=== PATIENT | male | born 1980 | race Caucasian/White ===

== ENCOUNTER 2019-02-18 04:51 | Observation (INO) | payer OTHER ==
[2019-02-18] VITALS (9 sets, daily range): BP systolic 116–143; BP diastolic 63–82; PULSE 54–89; RESP 17–20; Ht 170.2 cm; Wt 77.8 kg
[~2019-02-18] VITALS: Ht 170.2 cm; Wt 77.8 kg
[~2019-02-18 04:51] MED LIST: ALBU8.5H5 IH; HYDR-3498 PO
--- NOTE | 2019-02-18 08:28 | HP ---
Date/Time of Note Date/Time of Note DATE: 02/18/19 TIME: 08:28 Assessment/Plan VTE Prophylaxis Pharmacological prophylaxis: LMWH Lines/Catheters IV Catheter Type (from [facility]): Peripheral IV Assessment/Plan Hospital Course 38-year-old male with no significant comorbidities other than nicotine use who presented to an outside emergency room with complaints of chest pain and left- sided numbness, who was transferred to [facility] for further treatment and evaluation because of insurance reasons. 1. Chest pain. -Etiology unclear. -Differentials include ACS, pleuritic chest pain, versus musculoskeletal chest pain. Less likely PE since the d-dimer is negative and the patient is not hypoxic. -Obtain serial troponins. -Obtain 2D echocardiogram to evaluate left ventricular ejection fraction and evaluate for any wall motion abnormalities. -Start aspirin. -Obtain cardiology consult. 2. Left-sided numbness. -No focal weakness. -Brain CT scan from the transferring facility negative. -Continue aspirin. 3. Nicotine use. -Cessation will be advised. Plan: The patient will be admitted to inpatient telemetry floor. The patient will be kept n.p.o with no caffeine. The patient will be started on DVT prophylaxis. The patient will remain a full code. Activities will be as tolerated. The rest of the patient's management will be based on the clinical course, inputs from consultants, and the results of diagnostic studies. Based on the patient's clinical presentation, he most probably requires at least 1 midnight's stay for further management and evaluation of his clinical presentation. The patient was seen in collaboration with Dr. Humphrey. HPI/ROS Admit Date/Time Admit Date/Time Feb 18, 2019 at 06:30 Hx of Present Illness Reason for admission: Transfer from outside facility emergency room for further evaluation of chest pain and left-sided numbness. Consultants 1. Urbano Massey MD, Cardiology. This is a 38-year-old male who denied any significant past medical history. The patient is an occasional tobacco user. The patient went to [facility] emergency room because of chest pain as well as left upper and lower extremity numbness. The patient is a poor historian. The patient verbalized that the chest pain comes at random intervals. The patient complains of chest pain as pressure pain. He also reported exertional dyspnea. He denied any pleuritic pain. He verbalized that he has not been feeling well since he had a "flu" 1 month ago. The patient denied any fevers or chills. The patient denied any nausea, vomiting, or diaphoresis. In the emergency room at the transferring facility, the patient underwent a twelve-lead EKG that was showing normal sinus rhythm. The patient's troponin T was within normal limits. The patient's d-dimer was within normal limits. The patient underwent a brain CT scan that was negative. The patient was transferred to [facility] for further evaluation because of insurance reasons. ROS Constitutional: no complaints Eyes: no complaints ENT: no complaints Respiratory: no complaints Cardiovascular: chest pain, lightheadedness, other (Dyspnea on exertion) Gastrointestinal: no complaints Genitourinary: no complaints Musculoskeletal: no complaints Skin: no complaints Neurologic: dizziness, other (Paresthesias of the left upper and left lower extremity.) Endocrine: no complaints Lymphatic: no complaints Psychological: no complaints Immunologic: no complaints PMH/Family/Social Past Medical History Medical History: no pertinent history Coded Allergies: Penicillins (Verified Allergy, Unknown, 06/04/12) Past Surgical History 1. Sinus surgery. Family History Significant Family History: heart disease (In mother with stent placement), diabetes (In mother) Social History The patient lives at home with his family. Works as a implementation manager. Alcohol Use: occasionally Smoking Status: Current some day smoker Drug Use: none Exam/Review of Systems Vital Signs Vitals Vital Signs Date Temp Pulse Resp B/P (MAP) Pulse Ox O2 O2 Flow FiO2 Time Delivery Rate 02/18/19 97.7 54 18 120/67 98 07:14 (84) 02/18/19 Room Air 06:53 Exam Exam General: Adequately build 38 year-old male lying in bed in no apparent distress. HEENT: Normocephalic, atraumatic. Eyes: Anicteric sclerae, conjunctivae clear. ENT: Nasal septum midline, oral mucosa moist. Neck supple, no JVD noticed. Respiratory: Bilaterally clear breath sounds. No use of accessory muscles of respiration. No adventitious breath sounds. Cardiovascular: S1, S2 heard. Regular rate and rhythm. Abdomen: Soft, nontender, and nondistended. Bowel sounds positive in all 4 quadrants. Genitourinary: Deferred. Extremities: No cyanosis, no clubbing, no edema. Peripheral pulses palpable. Neurologic: Cranial nerves II through XII grossly intact. The patient is awake, alert, and oriented. Equal strength in all 4 extremities. Skin: Normal skin turgor. No skin rashes. Additional Comments CT Brain (from transferring facility) Impression: 1. No significant intracranial pathology. 12-Lead EKG (from transferring facility) Normal sinus rhythm. CBC: WBC 7.4, hemoglobin 14.1, hematocrit 41.6, platelet count 243. CMP: Sodium 138, potassium 3.8, chloride 107, carbon DEXA 20, anion gap 11, glucose 124, BUN 16, creatinine 0.99, calcium 8.4, albumin 3.8, bilirubin 0.2, AST 16, ALT 17, alkaline phosphatase 100, troponin T less than 0.01. D-dimer: 0.36 COLE HOLT NP Feb 18, 2019 08:28
[2019-02-18] MEDS ORDERED: ONDANSETRON 4 MG INJ IV PRN (08:30)
[2019-02-18] MEDS ORDERED: NACL 0.9% 3 ML SYG IV SCH (08:30)
[2019-02-18] MEDS ORDERED: NITROGLYCERIN (SL) 0.4 MG TAB SL PRN (10:30)
[2019-02-18] MEDS: ACETAMINOPHEN 325 MG TAB PO PRN (11:57)
[2019-02-18] MEDS: ENOXAPARIN 40 MG/0.4 ML SYG SC SCH (11:59)
[2019-02-18] MEDS: SOD CHLORIDE 0.9% 1,000 ML IV SCH ×2 (13:46→23:50)
--- NOTE | 2019-02-18 14:43 | CONS ---
Assessment/Plan Assessment/Plan Hospital Course (Demo Recall) Chest pain: Rule out ACS Possible dyslipidemia Smoker recommendations: Aspirin and beta-daniel for now. Will order a CT coronary angiogram to rule out significant obstructive coronary artery disease Echocardiogram is pending. Further recommendations after more information is available Thank you CHEKO TONEY MD [facility] Consultation Date/Type/Reason Admit Date/Time Feb 18, 2019 at 06:30 Date of Consultation: Feb 18, 2019 Type of Consult Cardiology Reason for Consultation cp Requesting Provider: COLE HOLT NP Date/Time of Note DATE: 02/18/19 TIME: 14:40 Hx of Present Illness Interventional cardiology consultation note Chief complaint: Chest pain Reason for consult: Chest pain History of present illness: Thank you for this referral. This is a 38-year-old gentleman with no past medical history who presented to outside facility with current complaints of chest pain. Pain is left-sided anterior. Mild to moderate in severity lasted on and off for a few minutes. Could not describe any exacerbating or relieving factors. He came to [place] last night troponin were negative this morning he had clear troponin is negative again but he still intermittently complains of chest pain Allergies: Penicillin Medications At Home none Family history: Mother had diabetes with bypass surgery and her 60s Social history: Occasional smoking Past medical history: Possible dyslipidemia Review of system: Patient denies all others except for above-mentioned Past Medical History Home Meds Reported Medications Albuterol Sulfate* (Albuterol Sulfate* HFA) 8.5 Gm Hfa.aer.ad, 2 PUFF IH Q4H PRN for WHEEZING AND SOB, EA 01/13/15 Hydrocodone Bit-Acetaminophen* ([place]*) 5-325 Mg Tab, 1 TAB PO Q12 PRN for PAIN, TAB 01/13/15 Medications Current Medications IV Flush (NS 3 ml) 3 ml PER PROTOCOL IV ; Start 02/18/19 at 08:30 Ondansetron HCl (Zofran Inj) 4 mg Q6H PRN IV NAUSEA/VOMITING; Start 02/18/19 at 08:30 Acetaminophen (Tylenol Tab) 650 mg Q6H PRN PO .PAIN 1-3 OR TEMP Last adm inistered on 02/18/19at 11:57; Admin Dose 650 MG; Start 02/18/19 at 08:30 Nitroglycerin (Nitroglycerin (Sl Tab) 0.4 Mg) 1 tab Q5M PRN SL ANGINA; Start 02/18/19 at 10:30 Aspirin (Halfprin) 81 mg DAILY PO ; Start 02/19/19 at 09:00 Sodium Chloride 1,000 ml @ 75 mls/hr [id number] IV Last administered on 02/18/19at 13:46; Admin Dose 75 MLS/HR; Start 02/18/19 at 10:30 Enoxaparin Sodium (Lovenox) 40 mg DAILY SC Last administered on 02/18/19at 11:59; Admin Dose 40 MG; Start 02/18/19 at 12:00 Simethicone (Mylicon) 160 mg Q6H PRN PO DISTENSION/GAS/BLOATING Last administered on 02/18/19at 11:57; Admin Dose 160 MG; Start 02/18/19 at 11:00 Metoprolol Tartrate (Lopressor) 25 mg BID GTB ; Start 02/18/19 at 15:00 Ivabradine (Corlanor) 7.5 mg NOW PO ; Start 02/18/19 at 15:00; Status UNV Allergies: Coded Allergies: Penicillins (Verified Allergy, Unknown, 06/04/12) Social History Alcohol Use: occasionally Smoking Status: Current some day smoker Drug Use: none Exam/Review of Systems Vital Signs Vitals Vital Signs Date Temp Pulse Resp B/P (MAP) Pulse Ox O2 O2 Flow FiO2 Time Delivery Rate 02/18/19 87 12:01 02/18/19 36.4 11:57 02/18/19 20 121/80 96 11:45 (94) 02/18/19 Room Air 06:53 Exam Exam General: no acute distress HEENT: NC/AT. pupils are equal. round. NECK: NO JVD. no stridor. CV: RRR. systolic murmur; no gallop or rubs. PULM: no wheezing or rhonchi. GI: SOFT, NT, ND, no rebound or guarding Extremity: trace B/L LE edema. no clubbing. neuro: awake and alert, OX3. Psych: calm and pleasant rectal: deferred : normal EKG normal sinus rhythm normal at [place] [facility] Result Diagram: 02/18/19 1018 02/18/19 1018 Results 24hrs Laboratory Tests Test 02/18/19 10:18 White Blood Count 6.0 Red Blood Count 5.00 Hemoglobin 14.7 Hematocrit 44.4 Mean Corpuscular Volume 88.8 Mean Corpuscular Hemoglobin 29.4 Mean Corpuscular Hemoglobin Concent 33.1 Red Cell Distribution Width 12.3 Platelet Count 258 Mean Platelet Volume 10.2 # Immature Granulocytes % 0.200 Neutrophils % 53.4 Lymphocytes % 34.5 Monocytes % 9.0 Eosinophils % 2.2 Basophils % 0.7 Nucleated Red Blood Cells % 0.0 Immature Granulocytes # 0.010 Neutrophils # 3.2 Lymphocytes # 2.1 Monocytes # 0.5 Eosinophils # 0.1 Basophils # 0.0 Nucleated Red Blood Cells # 0.0 Sodium Level 141 Potassium Level 4.2 Chloride Level 107 Carbon Dioxide Level 25 Anion Gap 9 Blood Urea Nitrogen 14 Creatinine 0.84 Est Glomerular Filtrat Rate mL/min > 60 Glucose Level 97 Hemoglobin A1c 5.1 Calcium Level 9.2 Magnesium Level 2.2 Total Bilirubin 0.6 Direct Bilirubin 0.00 Indirect Bilirubin 0.6 Aspartate Amino Transf (AST/SGOT) 24 Alanine Aminotransferase (ALT/SGPT) 23 Alkaline Phosphatase 83 Creatine Kinase 154 Creatine Kinase Index 0.1 Creatinine Kinase MB (Mass) 0.22 Troponin I < 0.012 B-Type Natriuretic Peptide 65 Total Protein 6.7 Albumin 4.1 Globulin 2.60 Albumin/Globulin Ratio 1.57 Triglycerides Level 196 H Cholesterol Level 153 LDL Cholesterol, Calculated 72 HDL Cholesterol 42 Cholesterol/HDL Ratio 3.6 Medications Medications Current Medications IV Flush (NS 3 ml) 3 ml PER PROTOCOL IV ; Start 02/18/19 at 08:30 Ondansetron HCl (Zofran Inj) 4 mg Q6H PRN IV NAUSEA/VOMITING; Start 02/18/19 at 08:30 Acetaminophen (Tylenol Tab) 650 mg Q6H PRN PO .PAIN 1-3 OR TEMP Last administered on 02/18/19at 11:57; Admin Dose 650 MG; Start 02/18/19 at 08:30 Nitroglycerin (Nitroglycerin (Sl Tab) 0.4 Mg) 1 tab Q5M PRN SL ANGINA; Start 02/18/19 at 10:30 Aspirin (Halfprin) 81 mg DAILY PO ; Start 02/19/19 at 09:00 Sodium Chloride 1,000 ml @ 75 mls/hr [id number] IV Last administered on 02/18/19at 13:46; Admin Dose 75 MLS/HR; Start 02/18/19 at 10:30 Enoxaparin Sodium (Lovenox) 40 mg DAILY SC Last administered on 02/18/19 11:59; Admin Dose 40 MG; Start 02/18/19 at 12:00 Simethicone (Mylicon) 160 mg Q6H PRN PO DISTENSION/GAS/BLOATING Last administered on 02/18/19 11:57; Admin Dose 160 MG; Start 02/18/19 at 11:00 Metoprolol Tartrate (Lopressor) 25 mg BID GTB ; Start 02/18/19 at 15:00 Ivabradine (Corlanor) 7.5 mg NOW PO ; Start 02/18/19 at 15:00; Status UNV CHEKO TONEY MD Feb 18, 2019 14:43
[2019-02-18] MEDS ORDERED: traMADol 50 MG TAB PO PRN (15:30)
--- NOTE | 2019-02-18 15:49 | RADRPT ---
Echocardiogram Report Patient Name: FRANCISCO CRANDALLPatient ID: [id number] : 1980 (38y 3m)Study Date: 02/18/2019 10:42:24 AM Gender: Pradeep #: [id number] Tech: AA Location: Ref.Physician: COLE HOLT Height(Cm): BSA: Weight(Kg): Quality: GoodAccount #: Procedures: Echocardiographic Report: Transthoracic echocardiogram with complete 2D, M-Mode, and doppler examination. Indications: Chest Pain. Measurements: 2D/M Mode Doppler Measurement Value Normal Range Measurement Value Normal Range LVIDd 2D 4.8 [ 4.2 - 5.8 ] cm AV Mean Andrew 0.6 [ 70.0 - 90.0 ] cm/sec LVIDs 2D 3.2 [ 2.5 - 4.0 ] cm AV Mean PG 2.0 [ 2.0 - 4.0 ] mmHg LVPWd 2D 1.0 [ 0.6 - 1.0 ] cm AV Peak Andrew 1.0 [ 100.0 - 170.0 ] cm/sec IVSd 2D 1.1 [ 0.6 - 1.0 ] cm AV Peak PG 4.0 [ 2.0 - 9.0 ] mmHg IVS/LVPW 2D 1.1 ratio AV VTI 23.2 cm LVOT Peak Andrew 0.8 [ 70.0 - 110.0 ] cm/sec LVOT Peak PG 3.0 [ 2.0 - 6.0 ] mmHg MV E Peak Andrew 0.9 [ 60.0 - 130.0 ] cm/sec MV A Peak Andrew 0.7 [ 100.0 - 120.0 ] cm/sec MV E/A 1.2 [ 0.8 - 1.5 ] ratio MV Decel Time 183 [ 104 - 258 ] msec Lat E` Andrew 0.1 [ 10.0 - 15.0 ] cm/sec MV E/A 1.2 [ 0.8 - 1.5 ] ratio TR Peak Andrew 2.6 [ 100.0 - 280.0 ] cm/sec TR Peak PG 28.0 mmHg RVSP 31.0 [ 10.0 - 36.0 ] mmHg RA Pressure 3.0 mmHg Findings: Left Ventricle: Normal left ventricular systolic function. Normal left ventricular cavity size. Normal left ventricular wall thickness. Ejection fraction is visually estimated at 55 %. Tissue Doppler/Mitral Doppler indices are within normal limits. Right Ventricle: Normal right ventricular size. Normal right ventricular systolic function. Left Atrium: The left atrium is normal in size. Right Atrium: The right atrium is normal in size. Mitral Valve: Normal appearance and function of the mitral valve with trace physiologic regurgitation. Aortic Valve: Normal appearance of the aortic valve. No significant aortic stenosis or insufficiency. Tricuspid Valve: Normal appearance and function of the tricuspid valve with trace physiologic regurgitation. Normal right ventricular systolic pressure. Pulmonic Valve: Normal pulmonic valve appearance. No evidence of pulmonic regurgitation. Pericardium: Normal pericardium with no significant pericardial effusion. Aorta: Normal aortic root. IVC: Normal size and normal respiratory collapse consistent with normal right atrial pressure. Conclusions: Normal left ventricular systolic function. Normal left ventricular cavity size. Normal left ventricular wall thickness. Ejection fraction is visually estimated at 55 %. Tissue Doppler/Mitral Doppler indices are within normal limits. Normal appearance and function of the mitral valve with trace physiologic regurgitation. Normal appearance of the aortic valve. No significant aortic stenosis or insufficiency. Normal appearance and function of the tricuspid valve with trace physiologic regurgitation. Normal right ventricular systolic pressure. Electronically Signed By: Urbano Massey 2019-02-18 15:48:45 PDT
[2019-02-18] MEDS: METOPROLOL 25 MG TAB GTB SCH ×2 (15:59→20:56)
[2019-02-18] MEDS ORDERED: IVABRADINE HCL 5 MG TABLET PO SCH (16:00)
[2019-02-18] MEDS ORDERED: IOHEXOL 100 ML ONE (16:07)
[2019-02-18] MEDS ORDERED: SOD CHLORIDE 0.9% 100 ML ONE (16:07)
[2019-02-18] MEDS ORDERED: NITROGLYCERIN AEROSOL (4.9 GM) ONE (16:39)
[2019-02-18] MEDS: HYDROCODONE/APAP (5/325) TAB PO PRN (21:04)
[2019-02-19] VITALS (10 sets, daily range): BP systolic 110–129; BP diastolic 58–76; PULSE 50–65; RESP 18–20
[2019-02-19] MEDS: SOD CHLORIDE 0.9% 1,000 ML IV SCH (03:03)
--- NOTE | 2019-02-19 08:19 | CONS ---
Consult Date/Type/Reason Admit Date/Time Feb 18, 2019 at 06:30 Initial Consult Date 02/18/19 Type of Consultation: cv Requesting Provider: COLE HOLT NP Date/Time of Note DATE: 02/19/19 TIME: 08:17 Subjective Cardiology follow-up Subjective: Discussed with staff and telemetry was reviewed patient remains in normal sinus rhythm sinus bradycardia Patient complains of another episode of chest pain this morning mild lasted a couple of minutes. Now he tells me that the pain gets actually worse after he eats Objective: General: no acute distress HEENT: NC/AT. pupils are equal. round. NECK: NO JVD. no stridor. CV: RRR. systolic murmur; no gallop or rubs. PULM: no wheezing or rhonchi. GI: SOFT, NT, ND, no rebound or guarding Extremity: trace B/L LE edema. no clubbing. neuro: awake and alert, OX3. Psych: calm and pleasant rectal: deferred : normal Echo reviewed see my report Objective Vitals Vital Signs Date Temp Pulse Resp B/P (MAP) Pulse Ox O2 O2 Flow FiO2 Time Delivery Rate 02/19/19 50 08:15 02/19/19 97.9 20 110/59 98 Room Air 07:56 (76) Intake and Output 02/18/19 02/18/19 02/19/19 1414:59 22:59 06:59 IntakeIntake Total 1500 ml 1800 ml BalanceBalance 1500 ml 1800 ml Results/Medications Result Diagram: 02/19/19 0633 02/18/19 1018 Results 24 hrs Laboratory Tests Test 02/18/19 10:18 02/18/19 15:48 02/18/19 21:30 02/18/19 22:03 White Blood Count 6.0 Red Blood Count 5.00 Hemoglobin 14.7 Hematocrit 44.4 Mean Corpuscular Volume 88.8 Mean Corpuscular 29.4 Hemoglobin Mean Corpuscular 33.1 Hemoglobin Concent Red Cell Distribution 12.3 Width Platelet Count 258 Mean Platelet Volume 10.2 # Immature Granulocytes % 0.200 Neutrophils % 53.4 Lymphocytes % 34.5 Monocytes % 9.0 Eosinophils % 2.2 Basophils % 0.7 Nucleated Red Blood 0.0 Cells % Immature Granulocytes # 0.010 Neutrophils # 3.2 Lymphocytes # 2.1 Monocytes # 0.5 Eosinophils # 0.1 Basophils # 0.0 Nucleated Red Blood 0.0 Cells # Sodium Level 141 Potassium Level 4.2 Chloride Level 107 Carbon Dioxide Level 25 Anion Gap 9 Blood Urea Nitrogen 14 Creatinine 0.84 Est Glomerular Filtrat > 60 Rate mL/min Glucose Level 97 Hemoglobin A1c 5.1 Calcium Level 9.2 Magnesium Level 2.2 Total Bilirubin 0.6 Direct Bilirubin 0.00 Indirect Bilirubin 0.6 Aspartate Amino 24 Transf (AST/SGOT) Alanine 23 Aminotransferase (ALT/SG PT) Alkaline Phosphatase 83 Creatine Kinase 154 125 106 Creatine Kinase Index 0.1 0.2 0.2 Creatinine Kinase MB 0.22 < 0.22 < 0.22 (Mass) Troponin I < 0.012 < 0.012 < 0.012 B-Type Natriuretic 65 Peptide Total Protein 6.7 Albumin 4.1 Globulin 2.60 Albumin/Globulin Ratio 1.57 Triglycerides Level 196 H Cholesterol Level 153 LDL Cholesterol, 72 Calculated HDL Cholesterol 42 Cholesterol/HDL Ratio 3.6 Urine Opiates Screen Negative Urine Barbiturates Negative Urine Amphetamines Negative Screen Urine Benzodiazepines Negative Screen Urine Cocaine Screen Negative Urine Cannabinoids Negative Test 02/19/19 06:33 White Blood Count 6.5 Red Blood Count 4.69 L Hemoglobin 13.9 L Hematocrit 42.0 Mean Corpuscular Volume 89.6 Mean Corpuscular 29.6 Hemoglobin Mean Corpuscular 33.1 Hemoglobin Concent Red Cell Distribution 12.1 Width Platelet Count 226 Mean Platelet Volume 10.3 Immature Granulocytes % 0.300 Neutrophils % 50.9 Lymphocytes % 36.3 Monocytes % 9.2 Eosinophils % 2.8 Basophils % 0.5 Nucleated Red Blood 0.0 Cells % Immature Granulocytes # 0.020 Neutrophils # 3.3 Lymphocytes # 2.4 Monocytes # 0.6 Eosinophils # 0.2 Basophils # 0.0 Nucleated Red Blood 0.0 Cells # Phosphorus Level 3.6 Magnesium Level 2.0 Troponin I < 0.012 Home Meds Reported Medications Albuterol Sulfate* (Albuterol Sulfate* HFA) 8.5 Gm Hfa.aer.ad, 2 PUFF IH Q4H PRN for WHEEZING AND SOB, EA 01/13/15 Hydrocodone Bit-Acetaminophen* ([place]*) 5-325 Mg Tab, 1 TAB PO Q12 PRN for PAIN, TAB 01/13/15 Medications Current Medications IV Flush (NS 3 ml) 3 ml PER PROTOCOL IV ; Start 02/18/19 at 08:30 Ondansetron HCl (Zofran Inj) 4 mg Q6H PRN IV NAUSEA/VOMITING; Start 02/18/19 at 08:30 Acetaminophen (Tylenol Tab) 650 mg Q6H PRN PO .PAIN 1-3 OR TEMP Last administered on 02/18/19 11:57; Admin Dose 650 MG; Start 02/18/19 at 08:30 Nitroglycerin (Nitroglycerin (Sl Tab) 0.4 Mg) 1 tab Q5M PRN SL ANGINA Last administered on 02/19/19 04:08; Admin Dose 1 TAB; Start 02/18/19 at 10:30 Aspirin (Halfprin) 81 mg DAILY PO ; Start 02/19/19 at 09:00 Sodium Chloride 1,000 ml @ 75 mls/hr [id number] IV Last administered on 02/19/19 03:03; Admin Dose 75 MLS/HR; Start 02/18/19 at 10:30 Enoxaparin Sodium (Lovenox) 40 mg DAILY SC Last administered on 02/18/19 11:59; Admin Dose 40 MG; Start 02/18/19 at 12:00 Simethicone (Mylicon) 160 mg Q6H PRN PO DISTENSION/GAS/BLOATING Last administered on 02/18/19 11:57; Admin Dose 160 MG; Start 02/18/19 at 11:00 Metoprolol Tartrate (Lopressor) 25 mg BID GTB Last administered on 02/18/19 20 :56; Admin Dose 25 MG; Start 02/18/19 at 15:00 Tramadol HCl ([place]) 50 mg Q6H PRN PO MODERATE PAIN LEVEL 4-6 Last administered on 02/18/19 15:55; Admin Dose 50 MG; Start 02/18/19 at 15:30 Acetaminophen/ Hydrocodone Bitart ([place] (5/325)) 1 tab Q6H PRN PO MODERATE PAIN LEVEL 4-6 Last administered on 02/18/19 21:04; Admin Dose 1 TAB; Start 02/18/19 at 18:30 Assessment/Plan Hospital Course (Demo Recall) Chest pain: OR was ruled out Possible dyslipidemia ? GERD Smoker recommendations: Follow-up with CT coronary angiogram. GI workup and treatment as per internal medicine. Okay to discharge from the cardiac standpoint if CT coronary angiogram does not show any significant flow-limiting obstruction Thank you CHEKO TONEY MD [facility] CHEKO TONEY MD Feb 19, 2019 08:19
[2019-02-19] MEDS: ASPIRIN (EC) 81 MG TAB PO SCH (08:59)
[2019-02-19] MEDS: METOPROLOL 25 MG TAB GTB SCH ×2 (09:00→21:57)
[2019-02-19] MEDS: ACETAMINOPHEN 325 MG TAB PO PRN ×2 (09:10→22:01)
[2019-02-19] MEDS: ENOXAPARIN 40 MG/0.4 ML SYG SC SCH (09:18)
[2019-02-19] MEDS: FAMOTIDINE 20 MG TAB PO SCH ×2 (13:04→21:56)
--- NOTE | 2019-02-19 14:28 | PN ---
Date/Time of Note Date/Time of Note DATE: 02/19/19 TIME: 14:25 Assessment/Plan VTE Prophylaxis Risk score (from Nsg)>0 risk: 0 SCD applied (from Nsg): No SCD contraindicated: other Pharmacological prophylaxis: LMWH Lines/Catheters IV Catheter Type (from Nrsg): Peripheral IV Urinary Cath still in place: No Assessment/Plan Hospital Course SUBJECTIVE: Continues to have chest pain. OBJECTIVE: Physical Exam General: Adequately build 38 year-old male lying in bed in no apparent distress. HEENT: Normocephalic, atraumatic. Eyes: Anicteric sclerae, conjunctivae clear. ENT: Nasal septum midline, oral mucosa moist. Neck supple, no JVD noticed. Respiratory: Bilaterally clear breath sounds. No use of accessory muscles of res piration. No adventitious breath sounds. Cardiovascular: S1, S2 heard. Regular rate and rhythm. Abdomen: Soft, nontender, and nondistended. Bowel sounds positive in all 4 quadrants. Genitourinary: Deferred. Extremities: No cyanosis, no clubbing, no edema. Peripheral pulses palpable. Neurologic: Cranial nerves II through XII grossly intact. The patient is awake, alert, and oriented. Equal strength in all 4 extremities. Skin: Normal skin turgor. No skin rashes. Labs & Vitals per chart ASSESSMENT & PLAN 38-year-old male with no significant comorbidities other than nicotine use who presented to an outside emergency room with complaints of chest pain and left- sided numbness, who was transferred to [facility] for further treatment and evaluation because of insurance reasons. 1. Chest pain. -Etiology unclear. -Possibly secondary to gastric reflux. -Cardiac CT negative for any obstructive lesions. -Start histamine 2 receptor blockers. 2. Left-sided numbness. -No focal weakness. -Brain CT scan from the transferring facility negative. -Continue aspirin. -Obtain brain MRI. 3. Nicotine use. -Cessation will be advised. 4. Fluids, electrolytes, and nutrition. -Low-cholesterol diet. 5. DVT prophylaxis -Subcutaneous Lovenox. 6. Plan. -Continue inpatient monitoring. -Brain MRI ordered. -Physical therapy evaluation ordered. The patient was seen in collaboration with Dr. Humphrey. Result Diagram: 02/19/19 0633 02/18/19 1018 Results 24hrs Laboratory Tests Test 02/18/19 15:48 02/18/19 21:30 02/18/19 22:03 02/19/19 06:33 Creatine Kinase 125 106 Creatine Kinase Index 0.2 0.2 Creatinine Kinase MB < 0.22 < 0.22 (Mass) Troponin I < 0.012 < 0.012 < 0.012 Urine Opiates Screen Negative Urine Barbiturates Negative Urine Amphetamines Negative Screen Urine Benzodiazepines Negative Screen Urine Cocaine Screen Negative Urine Cannabinoids Negative White Blood Count 6.5 Red Blood Count 4.69 L Hemoglobin 13.9 L Hematocrit 42.0 Mean Corpuscular Volume 89.6 Mean Corpuscular 29.6 Hemoglobin Mean Corpuscular 33.1 Hemoglobin Concent Red Cell Distribution 12.1 Width Platelet Count 226 Mean Platelet Volume 10.3 Immature Granulocytes % 0.300 Neutrophils % 50.9 Lymphocytes % 36.3 Monocytes % 9.2 Eosinophils % 2.8 Basophils % 0.5 Nucleated Red Blood 0.0 Cells % Immature Granulocytes # 0.020 Neutrophils # 3.3 Lymphocytes # 2.4 Monocytes # 0.6 Eosinophils # 0.2 Basophils # 0.0 Nucleated Red Blood 0.0 Cells # Phosphorus Level 3.6 Magnesium Level 2.0 Exam/Review of Systems Exam Vitals Vital Signs Date Temp Pulse Resp B/P (MAP) Pulse Ox O2 O2 Flow FiO2 Time Delivery Rate 02/19/19 61 12:12 02/19/19 98.3 20 124/71 97 Room Air 11:34 (88) Intake and Output 02/18/19 02/18/19 02/19/19 1414:59 22:59 06:59 IntakeIntake Total 1500 ml 1800 ml BalanceBalance 1500 ml 1800 ml Results Results 24hrs Laboratory Tests Test 02/18/19 15:48 02/18/19 21:30 02/18/19 22:03 02/19/19 06:33 Creatine Kinase 125 106 Creatine Kinase Index 0.2 0.2 Creatinine Kinase MB < 0.22 < 0.22 (Mass) Troponin I < 0.012 < 0.012 < 0.012 Urine Opiates Screen Negative Urine Barbiturates Negative Urine Amphetamines Negative Screen Urine Benzodiazepines Negative Screen Urine Cocaine Screen Negative Urine Cannabinoids Negative White Blood Count 6.5 Red Blood Count 4.69 L Hemoglobin 13.9 L Hematocrit 42.0 Mean Corpuscular Volume 89.6 Mean Corpuscular 29.6 Hemoglobin Mean Corpuscular 33.1 Hemoglobin Concent Red Cell Distribution 12.1 Width Platelet Count 226 Mean Platelet Volume 10.3 Immature Granulocytes % 0.300 Neutrophils % 50.9 Lymphocytes % 36.3 Monocytes % 9.2 Eosinophils % 2.8 Basophils % 0.5 Nucleated Red Blood 0.0 Cells % Immature Granulocytes # 0.020 Neutrophils # 3.3 Lymphocytes # 2.4 Monocytes # 0.6 Eosinophils # 0.2 Basophils # 0.0 Nucleated Red Blood 0.0 Cells # Phosphorus Level 3.6 Magnesium Level 2.0 Medications Medication Current Medications IV Flush (NS 3 ml) 3 ml PER PROTOCOL IV ; Start 02/18/19 at 08:30 Ondansetron HCl (Zofran Inj) 4 mg Q6H PRN IV NAUSEA/VOMITING; Start 02/18/19 at 08:30 Acetaminophen (Tylenol Tab) 650 mg Q6H PRN PO .PAIN 1-3 OR TEMP Last administered on 02/19/19 09:10; Admin Dose 650 MG; Start 02/18/19 at 08:30 Nitroglycerin (Nitroglycerin (Sl Tab) 0.4 Mg) 1 tab Q5M PRN SL ANGINA Last administered on 02/19/19 04:08; Admin Dose 1 TAB; Start 02/18/19 at 10:30 Aspirin (Halfprin) 81 mg DAILY PO Last administered on 02/19/19 08:59; Admin Dose 81 MG; Start 02/19/19 at 09:00 Enoxaparin Sodium (Lovenox) 40 mg DAILY SC Last administered on 02/19/19 09:18; Admin Dose 40 MG; Start 02/18/19 at 12:00 Simethicone (Mylicon) 160 mg Q6H PRN PO DISTENSION/GAS/BLOATING Last administered on 02/18/19 11:57; Admin Dose 160 MG; Start 02/18/19 at 11:00 Metoprolol Tartrate (Lopressor) 25 mg BID GTB Last administered on 02/19/19 09:00; Admin Dose 25 MG; Start 02/18/19 at 15:00 Tramadol HCl (Ultram) 50 mg Q6H PRN PO MODERATE PAIN LEVEL 4-6 Last administered on 02/18/19 15:55; Admin Dose 50 MG; Start 02/18/19 at 15:30 Acetaminophen/ Hydrocodone Bitart ([place] (5/325)) 1 tab Q6H PRN PO MODERATE PAIN LEVEL 4-6 Last administered on 02/18/19at 21:04; Admin Dose 1 TAB; Start 02/18/19 at 18:30 Famotidine (Pepcid) 20 mg BID PO Last administered on 02/19/19at 13:04; Admin Dose 20 MG; Start 02/19/19 at 12:00 COLE HOLT NP Feb 19, 2019 14:28
[2019-02-19] MEDS: HYDROCODONE/APAP (5/325) TAB PO PRN ×2 (15:26→23:57)
[2019-02-20] VITALS: BP 127/67; PULSE 56; RESP 18
[2019-02-20 00:40] VITALS: PULSE 57
[2019-02-20] MEDS ORDERED: traZODone 50 MG TAB PO ONE (03:30)
[2019-02-20 04:00] VITALS: BP 111/56; PULSE 53; PULSE 56; RESP 19
[2019-02-20 07:25] VITALS: BP 116/65; PULSE 60; RESP 18
[2019-02-20] MEDS: ASPIRIN (EC) 81 MG TAB PO SCH (08:19)
[2019-02-20] MEDS: METOPROLOL 25 MG TAB GTB SCH (08:19)
[2019-02-20] MEDS: FAMOTIDINE 20 MG TAB PO SCH (08:19)
[2019-02-20] MEDS: ENOXAPARIN 40 MG/0.4 ML SYG SC SCH (08:20)
--- NOTE | 2019-02-20 08:55 | CONS ---
Consult Date/Type/Reason Admit Date/Time Feb 18, 2019 at 06:30 Initial Consult Date 02/18/19 Type of Consultation: cv Requesting Provider: COLE HOLT NP Date/Time of Note DATE: 02/20/19 TIME: 08:54 Subjective Cardiology follow-up Subjective: Discussed with staff and telemetry was reviewed patient remains in normal sinus rhythm Patient no more chest pain this morning Objective: General: no acute distress HEENT: NC/AT. pupils are equal. round. NECK: NO JVD. no stridor. CV: RRR. systolic murmur; no gallop or rubs. PULM: no wheezing or rhonchi. GI: SOFT, NT, ND, no rebound or guarding Extremity: trace B/L LE edema. no clubbing. neuro: awake and alert, OX3. Psych: calm and pleasant rectal: deferred : normal Echo reviewed see my report Objective Vitals Vital Signs Date Temp Pulse Resp B/P (MAP) Pulse Ox O2 O2 Flow FiO2 Time Delivery Rate 02/20/19 98.2 60 18 116/65 98 Room Air 07:25 (82) Intake and Output 02/19/19 02/19/19 02/20/19 1515:00 23:00 07:00 IntakeIntake Total 750 ml 960 ml 500 ml BalanceBalance 750 ml 960 ml 500 ml Results/Medications Result Diagram: 02/19/19 0633 02/18/19 1018 Home Meds Reported Medications Albuterol Sulfate* (Albuterol Sulfate* HFA) 8.5 Gm Hfa.aer.ad, 2 PUFF IH Q4H PRN for WHEEZING AND SOB, EA 01/13/15 Hydrocodone Bit-Acetaminophen* ([place]*) 5-325 Mg Tab, 1 TAB PO Q12 PRN for PAIN, TAB 01/13/15 Medications Current Medications IV Flush (NS 3 ml) 3 ml PER PROTOCOL IV Last administered on 02/19/19at 21:59; Admin Dose 3 ML; Start 02/18/19 at 08:30 Ondansetron HCl (Zofran Inj) 4 mg Q6H PRN IV NAUSEA/VOMITING; Start 02/18/19 at 08:30 Acetaminophen (Tylenol Tab) 650 mg Q6H PRN PO .PAIN 1-3 OR TEMP Last administer ed on 4/3/19at 22:01; Admin Dose 650 MG; Start 02/18/19 at 08:30 Nitroglycerin (Nitroglycerin (Sl Tab) 0.4 Mg) 1 tab Q5M PRN SL ANGINA Last administered on 02/19/19 04:08; Admin Dose 1 TAB; Start 02/18/19 at 10:30 Aspirin (Halfprin) 81 mg DAILY PO Last administered on 02/20/19 08:19; Admin Dose 81 MG; Start 02/19/19 at 09:00 Enoxaparin Sodium (Lovenox) 40 mg DAILY SC Last administered on 02/20/19 08:20; Admin Dose 40 MG; Start 02/18/19 at 12:00 Simethicone (Mylicon) 160 mg Q6H PRN PO DISTENSION/GAS/BLOATING Last administered on 02/18/19 11:57; Admin Dose 160 MG; Start 02/18/19 at 11:00 Metoprolol Tartrate (Lopressor) 25 mg BID GTB Last administered on 02/20/19 08:19; Admin Dose 25 MG; Start 02/18/19 at 15:00 Tramadol HCl (Ultram) 50 mg Q6H PRN PO MODERATE PAIN LEVEL 4-6 Last administered on 02/18/19 15:55; Admin Dose 50 MG; Start 02/18/19 at 15:30 Acetaminophen/ Hydrocodone Bitart ([place] (5/325)) 1 tab Q6H PRN PO MODERATE PAIN LEVEL 4-6 Last administered on 02/19/19 23:57; Admin Dose 1 TAB; Start 02/18/19 at 18:30 Famotidine (Pepcid) 20 mg BID PO Last administered on 02/20/19 08:19; Admin Dose 20 MG; Start 02/19/19 at 12:00 Assessment/Plan Hospital Course (Demo Recall) Chest pain: NM was ruled out Possible dyslipidemia ? GERD Smoker recommendations: CT coronary angiogram. is unremarkable GI workup and treatment as per internal medicine. neuro work up is pending Thank you CHEKO TONEY MD [facility] CHEKO TONEY MD Feb 20, 2019 08:55
[2019-02-20 09:55] VITALS: PULSE 61
[2019-02-20] MEDS: ACETAMINOPHEN 325 MG TAB PO PRN (10:01)
[2019-02-20] MEDS ORDERED: RANI150T5 PO (10:59)
[2019-02-20] MEDS ORDERED: ASPI-1044 PO (11:04)
[2019-02-20] MEDS ORDERED: ASPI-817 PO (11:05)
--- NOTE | 2019-02-20 11:07 | PDOCDIS ---
Discharge Instructions CONDITION [id number] Patient Condition: [id number] Stable HOME CARE INSTRUCTIONS: [id number] Diet Instructions: [id number] Low Fat /Cholesterol FOLLOW UP/APPOINTMENTS Follow-up Plan Follow-up with your primary care physician in 2 weeks. OTHER ORDERS: Other Orders: 1. Take a low-cholesterol diet. 2. Take aspirin and ranitidine. 3. Resume activities as tolerated. 4. Abstain from using tobacco products. 5. Follow-up with your primary care physician in 2 weeks. 6. Please go to the nearest emergency room if you have any significant chest pain, shortness of breath, or any other unusual signs/symptoms. COLE HOLT NP Feb 20, 2019 11:07
[2019-02-20 11:13] VITALS: BP 116/56; PULSE 56; RESP 18
--- NOTE | 2019-02-20 11:32 | DS ---
Date/Time of Note Date/Time of Note DATE: 02/20/19 TIME: 11:30 Discharge Summary Admission/Discharge Info Admit Date/Time Feb 18, 2019 at 06:30 Discharge Date/Time Discharge Diagnosis 1. Atypical chest pain. 2. Left-sided numbness. 3. GERD. 4. Nicotine use. Patient Condition: Stable Consults 1. Urbano Massey MD, Cardiology. Procedures 2D Echocardiogram Conclusions: Normal left ventricular systolic function. Normal left ventricular cavity size. Normal left ventricular wall thickness. Ejection fraction is visually estimated at 55 %. Tissue Doppler/Mitral Doppler indices are within normal limits. Normal appearance and function of the mitral valve with trace physiologic regurgitation. Normal appearance of the aortic valve. No significant aortic stenosis or insufficiency. Normal appearance and function of the tricuspid valve with trace physiologic regurgitation. Normal right ventricular systolic pressure. Cardiac CT IMPRESSION: Total calcium score: 0 RCA: Normal. LM: Normal. LAD: Normal. LCX: Normal. Brain MRI IMPRESSION: 1. Minimal nonspecific punctate deep white matter foci of abnormal signal intensity. Etiologies include migraines, vasculitis, microangiopathic ischemic changes. 2. Mild mucosal thickening ethmoid air cells. Hx of Present Illness Reason for admission: Transfer from outside facility emergency room for further evaluation of chest pain and left-sided numbness. Consultants 1. Urbano Massey MD, Cardiology. This is a 38-year-old male who denied any significant past medical history. The patient is an occasional tobacco user. The patient went to [facility] emergency room because of chest pain as well as left upper and lower extremity numbness. The patient is a poor historian. The patient verbalized that the chest pain comes at random intervals. The patient complains of chest pain as pressure pain. He also reported exertional dyspnea. He denied any pleuritic pain. He verbalized that he has not been feeling well since he had a "flu" 1 month ago. The patient denied any fevers or chills. The patient denied any nausea, vomiting, or diaphoresis. In the emergency room at the transferring facility, the patient underwent a twelve-lead EKG that was showing normal sinus rhythm. The patient's troponin T was within normal limits. The patient's d-dimer was within normal limits. The patient underwent a brain CT scan that was negative. The patient was transferred to [facility] for further evaluation because of insurance reasons. Hospital Course The patient was admitted to inpatient setting. A cardiology consult was obtained. The patient's chest pain was extensively evaluated. The patient's 2D echocardiogram was showing preserved left ventricular ejection fraction. The patient underwent a cardiac CT that was negative for any coronary lesions that are obstructive. The patient's chest pain seemed to be related to dietary intake. The patient reported a history of acid reflux. The patient was started on histamine 2 receptor blockers with improvement in the patient's chest pain symptoms. The patient was maintained on aspirin for primary prevention. The patient has a 10-year cardiac risk of 4.93. The patient's hemoglobin A1c was within normal limits. The patient's fasting lipid panel was satisfactory other than elevated triglycerides. The patient also verbalized with left-sided numbness. Therefore, the patient underwent a brain MRI although the patient had a negative CT from the transferring facility. The patient's brain MRI was negative for any acute stroke. However, the MRI showed minimal nonspecific punctate deep white matter foci of abnormal signal intensity. The patient was also evaluated by physical therapy, who recommended no skilled physical therapy needs. The patient had a stable hospital course. The patient is stable to be discharged home. Discharge Instructions 1. Take a low-cholesterol diet. 2. Take aspirin and ranitidine. 3. Resume activities as tolerated. 4. Abstain from using tobacco products. 5. Follow-up with your primary care physician in 2 weeks. 6. Please go to the nearest emergency room if you have any significant chest pain, shortness of breath, or any other unusual signs/symptoms. The patient verbalized understanding of his discharge instructions. At this time I would like to thank Dr. Masesy for seeing the patient and providing clinical recommendations. The patient was seen in collaboration with Dr. Humphrey. Home Meds Active Scripts Aspirin Delayed Release (Aspirin Delayed Release) 81 Mg Tablet., 81 MG PO DAILY, #30 Prov:COLE HOLT [employer] 02/20/19 Ranitidine Hcl* (Ranitidine Hcl*) 150 Mg Tablet, 150 MG PO Q12, #60 TAB Prov:COLE HOLT [employer] 02/20/19 Discontinued Reported Medications Albuterol Sulfate* (Albuterol Sulfate* HFA) 8.5 Gm Hfa.aer.ad, 2 PUFF IH Q4H PRN for WHEEZING AND SOB, EA 01/13/15 Hydrocodone Bit-Acetaminophen* ([place]*) 5-325 Mg Tab, 1 TAB PO Q12 PRN for PAIN, TAB 01/13/15 Follow-up Plan Follow-up with your primary care physician in 2 weeks. Primary Care Provider Not On Staff Doctor Time spent on discharge: > 30 minutes COLE HOLT NP Feb 20, 2019 11:32
== END 2019-02-20 12:31 | disposition home or self-care (01) ==
LOC: TEL 06:30 → INTOOBSV 06:30
PROVIDERS: ADMIT Family Medicine; ATTEND Family Medicine
DX: R07.89 Other chest pain (principal); R20.0 Anesthesia of skin; K21.9 Gastro-esophageal reflux disease without esophagitis; Z72.0 Tobacco use
CPT/HCPCS: 70553; 75574; 80053; 80061; 80307; 82550; 82553; 83036; 83735; 83880; 84100; 84484; 85025; 93306; 97161; J1650; J7030; Q9967; Z7500; Z7610; 99217; G0378